=== PATIENT | female | born 1945 | race Caucasian/White ===

== ENCOUNTER 2019-10-13 08:22 | Day surgery (SDC) | payer MEDICARE, OTHER, SELFPAY ==
--- NOTE | 2019-10-13 | PATH_ITS ---
[facility] [place] Accession Number: [id number] . 01 Material submitted: . colon - SPLENIC FLEXURE POLYP . 02 Diagnosis: Splenic Flexure, Polyp, Biopsy: Tubular adenoma. MRV 10/14/2019 1310 Local . 02 Electronically signed: . Elizabeth Joya MD, Pathologist NPI- [id number] . 01 Gross description: . SPLENIC FLEXURE POLYP: Received in formalin are 2 fragment(s) of andino, soft tissue measuring 0.2 x 0.2 x 0.1 cm to 0.3 x 0.2 x 0.2 cm submitted entirely in 1 cassette(s) [place] [place]/13/2019 2226 Local . 02 Pathologist provided ICD-10: D12.3 . 02 CPT . 740822 Performed at: 01 [facility] [address] [id number] MD King Ahuja MD Phone: [phone] Performed at: 02 [facility] [place] [address] [place], [place] [id number] MD Elizabeth Joya MD Phone: [phone]
[2019-10-13 08:44] VITALS: BP 152/82; PULSE 83; RESP 16; TEMP 36.2; O2SAT 97
[2019-10-13 08:45] VITALS: BMI 25.0
[2019-10-13] MEDS: SODIUM CHLORIDE 0.9% 1,000 ML 42 ML IV (08:56)
--- NOTE | 2019-10-13 09:14 | PM.HP.1 ---
History of Present Illness History of Present Illness Chief complaint: [id number] Patient History Medical History (Updated 10/13/19 @ 09:59 by Jeanne Harp MD) Adenomatous colon polyp (Acute) Surgical History (Updated 03/24/18 @ 06:17 by Conversion Provider) History of tonsillectomy Status post delivery Family & Social History Family History (Updated 11/30/17 @ 00:00 by Conversion Provider) Grandmother Stroke Mother Age: 84 Heart disease Grandfather Stroke Grandmother Heart disease Social History: household members spouse Meds Home Medications and Allergies Home Medications Medication Instructions Recorded Confirmed Type [cholestoff] #0 12/01/17 History [collagen] #0 12/01/17 History [flaxseed oil] #0 12/01/17 History [glucosamine karyn] #0 12/01/17 History ascorbic acid (vitamin C) #0 12/01/17 History calcium carbonate [Calci-Chew] #0 12/01/17 History cholecalciferol (vitamin D3) 1,000 iu #0 12/01/17 History coenzyme Q10 [Co Q-10] 300 mg #0 12/01/17 History lutein #0 12/01/17 History multivitamin [Multiple Vitamins] #0 12/01/17 History omega 2-ulq-aao-fish oil [Fish Oil] #0 12/01/17 History Allergies Allergy/AdvReac Type Severity Reaction Status Date / Time No Known Allergies Allergy Uncoded 10/13/19 08:56 Exam Vital Signs (past 8 hours): - 10/13/19 08:44 Temperature 97.2 F L Pulse Rate 83 Respiratory Rate 16 Blood Pressure 152/82 H Pulse Oximetry 97 Oxygen Delivery Method Room Air Narrative Exam Narrative: Oropharynx free of lesions Chest clear to auscultation percussion Cardiac exam reveals no S3 or murmur Assessment & Plan Assessment & Plan narrative: History of adenomatous colon polyps with large flat polyps present. Need for follow-up colonoscopy Patient is high risk for having follow-up colonoscopy therefore repeat colonoscopy with performed. Risks, benefits, alternatives have been explained.
--- NOTE | 2019-10-13 10:00 | PM.OP.ENDO ---
Operative Date/Time/Diagnoses Date of procedure: 10/13/19 Time of procedure: 10:00 Pre-op diagnosis: All see indication and findings Procedure & Clinicians Study performed: Colonoscopy, 1st screening Same procedure as scheduled: Yes Indications: Screening for colon cancer Surgeon: Jeanne Harp Procedure Notes Procedure in detail: After informed consent was obtained the patient was placed in the left lateral decubitus position. The video colonoscope was introduced the rectum slowly advanced to cecum. On slow withdrawal mucosa was carefully examined. The scope was removed. The patient tolerated procedure well. Blood loss none Complications none Sedation Total sedation time, 13 minutes Versed 5 mg fentanyl 150 micro g IV titration Findings 1. Tattoo deep in cecum and the in proximal transverse colon neither 1 with residual polyp 2. 5 mm polyp in splenic flexure Jumbo biopsy removed completely 3. Diverticulosis in a very adhesed to the segment of the sigmoid colon, eventually passed 4. Otherwise negative colonoscopy to cecum We will be in touch with the patient regarding findings. I think she be stretched to a 5 year interval. I would suggest colonoscopically follow-up and not follow-up with stool testing given his she is very high risk for large polyps and has had recurrent adenomatous polyps.
[2019-10-13] MEDS: fentaNYL 100 MCG/2 ML INJ 150 MCG IV (10:17)
[2019-10-13] MEDS: MIDAZOLAM 5 MG/5 ML VIAL IV (10:17)
[2019-10-13 10:25] VITALS: BP 113/61; PULSE 69; RESP 12; TEMP 36.8; O2SAT 96
[2019-10-13 10:30] VITALS: BP 116/61; PULSE 69; RESP 12; O2SAT 96
[2019-10-13 10:35] VITALS: BP 112/57; PULSE 67; RESP 10; O2SAT 94
[2019-10-13 10:59] VITALS: BP 118/69; PULSE 55; RESP 16; TEMP 37.3; O2SAT 96
== END 2019-10-13 11:07 | disposition home or self-care (01) ==
PROVIDERS: Family Provider Internal Medicine; PCP Internal Medicine; Visit Provider Internal Medicine Gastroenterology
PROC: 0DJD8ZZ Inspection of Lower Intestinal Tract, Via Natural or Artificial Opening Endoscopic (ICD-10-PCS; CPT 45378; principal; 2019-10-13 09:30)
DX: Z12.11 Encounter for screening for malignant neoplasm of colon (principal); Z86.010 Personal history of colon polyps; F41.9 Anxiety disorder, unspecified; D12.3 Benign neoplasm of transverse colon
CPT/HCPCS: 45380; J2250; J3010

== ENCOUNTER → 2021-08-09 14:28 | Outpatient (CLI) | payer MEDICARE, OTHER, SELFPAY ==
--- NOTE | 2021-08-09 14:32 | DI.MRI.S_ITS ---
PROCEDURE: MR LUMBAR SPINE WO CON INDICATIONS: Scoliosis with neural foraminal stenosis TECHNIQUE: Noncontrast sagittal T1 spin echo and T2 fast echo, sagittal STIR, axial T1 and T2 fast spin echo through the lumbar spine. In cases with scoliosis, additional coronal T2 fast spin echo may be performed. COMPARISON: [facility], RG, XR L-SPINE 2-3V, 05/09/2021, 10:07. FINDINGS: Image quality: This examination is limited by involuntary motion artifact. Alignment and Curvature: There is mqys-yg-qtltlizi dextroconvex lumbar scoliosis. There is minimal retrolisthesis seen at L1-L2 and L2-L3. Bone Marrow: Marrow is of normal overall signal. No acute vertebral body compression fractures. Spinal Cord: Conus medullaris terminates at the L1 level. Visualized cord demonstrates normal signal and size. Paraspinous Soft Tissues: No paravertebral masses. T11-T12: Mild loss of disc height and disc signal can be seen. Bridging endplate osteophytes are seen. No significant neural foraminal or central canal narrowing can be seen. T12-L1: The disc height and disk signal are well-preserved. Mild generalized disc bulge is seen. Mild facet joint hypertrophy is seen. No significant neural foraminal narrowing can be seen. Mild central canal narrowing is seen. L1-L2: At least moderate loss of disc height and disc signal can be seen. Mild to moderate disc bulge is seen, with a central disc extrusion. There is an associated annular fissure seen, as on series 2, image 9. Moderate facet joint hypertrophy is seen. There is zbee-ku-yxbdrfcp right-sided and moderate left-sided neural foraminal narrowing seen. At least moderate central canal narrowing is seen. L2-L3: At least moderate loss of disc height and disc signal can be seen. Moderate generalized disc bulge is seen. There is a central disc protrusion seen. There is a focal annular fissure seen posteriorly. There is swgq-cl-qmfirynk right-sided and at least moderate left-sided facet hypertrophy seen. There is mild right-sided and moderate to severe left-sided neural foraminal narrowing seen. There is a degree of compression seen upon the exiting left L2 nerve root. Moderate central canal narrowing is seen. L3-L4: At least moderate loss of disc height and disc signal can be seen. At least moderate disc bulge is seen, which is eccentric to the left. There is a mild central disc extrusion seen. Prominent facet hypertrophy is seen, left worse than right. There is moderate to severe left-sided neural foraminal narrowing, with associated mild compression upon the exiting left L3 nerve root. Moderate right-sided neural foraminal narrowing is seen. Moderate to severe central canal narrowing is seen at this level, as on series 6, image 22. L4-L5: Dvhg-pu-gfjisrgx loss of disc height and disc signal can be seen. Mild to moderate disc bulge is seen, which is eccentric to the left. There is a left foraminal disc extrusion seen, with superior migration of the disc material, as on series 4, image 12 and on series 2, image 12. Prominent facet hypertrophy is seen at this level. There is moderate to severe left-sided neural foraminal narrowing, with associated compression upon the exiting left L4 nerve root. Moderate right-sided neural foraminal narrowing is seen. Moderate central canal narrowing is seen. L5-S1: Moderate loss of disc height is seen. Loss of disc signal is seen. Reactive marrow endplate changes are seen, which are hyperintense on T1-weighted and T2-weighted imaging and most consistent with fatty metaplasia (Modic type II changes). At least moderate disc bulge is seen, which is eccentric to the right. Mild to moderate facet hypertrophy is seen. There is at least moderate bilateral neural foraminal narrowing seen. Mild to moderate central canal narrowing is seen. IMPRESSION: Multiple levels of prominent lumbar spine degenerative change are seen. At the L3-L4 level, there is moderate to severe central canal narrowing seen. At least moderate central canal narrowing is seen at L1-L2. Moderate central canal narrowing can be seen at L2-L3 and at L4-L5. Several sites of significant neural foraminal narrowing can be seen, with associated exiting nerve root compression. Dextroconvex scoliosis. Dictated by: Bhavin Benson M.D. on 08/09/2021 at 14:19 Approved by: Bhavin Benson M.D. on 08/09/2021 at 14:24
== END ==
PROVIDERS: Family Provider Internal Medicine; PCP Family Medicine; Referring Provider Physical Medicine & Rehabilitation; Visit Provider Physical Medicine & Rehabilitation
DX: M48.061 Spinal stenosis, lumbar region without neurogenic claudication (principal); M51.36 Other intervertebral disc degeneration, lumbar region; M41.9 Scoliosis, unspecified
CPT/HCPCS: 72148

== ENCOUNTER → 2022-05-20 13:48 | Outpatient (CLI) | payer MEDICARE, OTHER, SELFPAY ==
--- NOTE | 2022-05-20 13:50 | DI.RAD.S_ITS ---
PROCEDURE: XR ANKLE RT MIN 3V INDICATIONS: right ankle swelling TECHNIQUE: 3 views of the ankle were acquired. COMPARISON: None. FINDINGS: Bones: No fractures or dislocations. Ankle mortise is normally aligned. No suspicious bony lesions. Soft tissues: No tibiotalar joint effusion. Achilles tendon appears normal. Mild soft tissue swelling of the right ankle. IMPRESSION: Right ankle soft tissue swelling. No underlying fracture or dislocation. If there are persistent symptoms or clinical suspicion for pathology, then repeat radiographs or advanced imaging (CT or MRI) may be considered for further evaluation. Dictated by: Delvis Mohr M.D. on 05/20/2022 at 16:29 Approved by: Delvis Mohr M.D. on 05/20/2022 at 16:31
== END ==
PROVIDERS: Family Provider Internal Medicine; PCP Family Medicine; Referring Provider Physical Medicine & Rehabilitation; Visit Provider Physical Medicine & Rehabilitation
DX: M25.471 Effusion, right ankle (principal); M79.89 Other specified soft tissue disorders; M41.26 Other idiopathic scoliosis, lumbar region; M54.59 Other low back pain
CPT/HCPCS: 73610; 99213

== ENCOUNTER 2023-09-25 14:55 | Observation (INO) | payer MEDICARE, OTHER, SELFPAY ==
[2023-09-25] VITALS (26 sets, daily range): BP systolic 154–219; BP diastolic 75–99; PULSE 67–88; RESP 16–32; TEMP 36.3–36.6; O2SAT 96–100; BMI 24.0
--- NOTE | 2023-09-25 15:10 | DI.RAD.S_ITS ---
PROCEDURE: XR CHEST 1V INDICATIONS: chest pain TECHNIQUE: One view of the chest was acquired. COMPARISON: None. FINDINGS: Surgical changes and devices: None. Lungs and pleura: Lungs are clear. No pleural effusions or pneumothorax. Mediastinum: Mediastinal contours appear normal. Heart size is mildly enlarged. Bones and chest wall: No suspicious bony lesions. Overlying soft tissues appear unremarkable. IMPRESSION: Portable chest within normal limits for age. Dictated by: Teressa Victoria M.D. on 09/25/2023 at 16:00 Approved by: Teressa Victoria M.D. on 09/25/2023 at 16:00
[2023-09-25 15:25] LABS: Add Manual Diff / Slide Review NO; Basophils Absolute Auto 0 /uL (0-100); Basophils Percent Auto 0.6 % (0-2); Eosinophils Absolute Auto 200 /uL (0-450); Eosinophils Percent Auto 2.1 % (2-4); Hematocrit 42.5 % (36-46); Lymphocytes Absolute Auto 1300 /uL (1100-4500); Lymphocytes Percent Auto 16.3 % (25-40); Mean Corpuscular HGB Conc 35.2 % (30-36); Mean Corpuscular Hemoglobin 32.4 PG (26-34); Mean Corpuscular Volume 92.1 fL (80-100); Monocytes Absolute Auto 600 /uL (0-900); Monocytes Percent Auto 6.9 % (3-14); Neutrophils Absolute Auto 6000 /uL (1500-7000); Neutrophils Percent Auto 74.1 % (50-75); Platelet Count 182 X10^3/uL (150-400); Red Blood Cell Count 4.61 X10^6/uL (4.0-5.2); Red Cell Distribution Width 12.3 % (11.6-14.8); White Blood Cell Count 8.1 X10^3/uL (4.5-11.0)
--- NOTE | 2023-09-25 15:25 | ED.CHESTPAIN ---
HPI - Chest Pain General Chief Complaint: Chest Pain Stated Complaint: sent by [facility] for abn EKG Time Seen by Provider: 09/25/23 15:11 Source: patient Mode of arrival: Ambulatory Limitations: no limitations History of Present Illness HPI narrative: Patient brought here by 2 of her friends from walk-in clinic for variable complaints but patient chiefly came to the clinic for feeling confused this morning. Friend state through the week she is been off on feeling foggy and confused. Patient states her usual task are very easy but today she found it very difficult to use the computer around noon time today, trying to send emails out. She was able to complete it. Patient and friends deny any slurred speech facial droop. Patient in no distress at this time. Patient recently started new blood pressure. Blood pressure noted here. Denies any headache. Fast exam is negative. No prior history of heart attack strokes or diabetes. Related Data Home Medications Medication Instructions Recorded Confirmed omega 8-ppr-vcy-fish oil 1,000 mg 1 cap PO DAILY ##0 12/01/17 09/25/23 (120 mg-180 mg) capsule (Fish Oil) naproxen sodium 220 mg capsule 220 mg PO BID PRN Pain (Scale 06/13/22 09/25/23 (Aleve) Score 1-3) Previous Rx's Medication Instructions Recorded celecoxib 200 mg capsule (Celebrex) 200 mg PO DAILY #30 caps 06/13/22 losartan 25 mg tablet 25 mg PO DAILY #30 tabs 09/26/23 Allergies Allergy/AdvReac Type Severity Reaction Status Date / Time No Known Drug Allergies Allergy Verified 09/25/23 17:46 Review of Systems Review of Systems Narrative: GENERAL: negative chills, fatigue, malaise, fever, sweats. HEENT: negative sinus pain, ear pain, sore throat RESPIRATORY: negative dyspnea, cough CARDIOVASCULAR: negative chest pain, palpitations GASTROINTESTINAL: negative nausea, vomiting, abdominal pain : negative dysuria, frequency, hematuria MUSCULOSKELETAL: negative muscle or bony pain SKIN: negative rash, skin lesions NEUROLOGIC: negative weakness, numbness, positive confusion ROS Unobtainable: All systems reviewed & are unremarkable except as noted in HPI and below Patient History Medical History Right ankle swelling Scoliosis Low back pain associated with a spinal disorder other than radiculopathy or spinal stenosis Adenomatous colon polyp Surgical History Status post delivery History of tonsillectomy Family History Grandmother Stroke Mother Age: 88 Heart disease Grandfather Stroke Grandmother Heart disease Social History household members: spouse Smoking Status: Never smoker alcohol intake: never Smoking Status: Never smoker Substance Use Type: does not use Exam Narrative Exam Narrative: GENERAL: in no distress, not toxic not dyspneic HEAD: Normocephalic. EYES: Pupils equal round ENT: Mucous membranes moist. NECK: Trachea midline. CARDIOVASCULAR: Regular rate and rhythm RESPIRATORY: Clear to auscultation. Breath sounds equal bilaterally. No wheezes, rales, or rhonchi. GASTROINTESTINAL: Abdomen soft, non-tender EXTREMITIES: No gross deformities. BACK: No flank tenderness. NEURO: AOx4.Clear speech no facial droop. ?Light touch intact to bilateral face hands and legs. ?Strong equal machine design engineer bilaterally and ankle flexion hip flexion and knee flexion. ?Strong bilateral patellar reflexes. ?No pronator drift. ? SKIN: Warm and dry PSYCH: Not anxious, is cooperative Initial Vital Signs Initial Vital Signs: Vital Signs Temperature 98 F 09/25/23 15:07 Pulse Rate 77 09/25/23 15:07 Respiratory Rate 16 09/25/23 15:07 Blood Pressure 219/99 H 09/25/23 15:07 Pulse Oximetry 100 09/25/23 15:07 Oxygen Delivery Method Room Air 09/25/23 15:07 Scores NIH Stroke Scale Level of Conciousness: Alert, keenly responsive Ask month/age: Answers both questions correctly. Open/close eyes, close hand: Performs both tasks correctly Best gaze horizontal: Normal Visual gutierrez: No visual loss Facial palsy: Normal symetrical movement Left arm drift: No drift for full 10 sec Right arm drift: No drift for full 10 sec Left leg drift: No drift for full 5 sec Right leg drift: No drift for full 5 sec Limb ataxia: Absent Sensory on face/arms/legs: Normal, no sensory loss Best language: No aphasia, normal Dysarthria: Normal Extinction or inattention: No abnormality Total NIH Stroke scale score: 0 Course Orders Ordered: Discontinued Medications Acetaminophen (Acetaminophen 325 Mg Tablet) 650 mg PO Q6H PRN PRN Reason: Fever/Mild Pain (1-3) Aspirin (Aspirin 81 Mg Chew Tab) 324 mg PO NOW ONE Stop: 09/25/23 15:11 Last Admin: 09/25/23 15:20 Dose: Not Given Documented By: MARZENA Enoxaparin Sodium (Enoxaparin 40 Mg/0.4 Ml Syringe) 40 mg SUBCUT DAILY [facility] Last Admin: 09/26/23 09:53 Dose: Not Given Documented By: Admin: 09/25/23 18:49 Dose: 40 mg Documented By: MARZENA Sodium Chloride (Normal Saline 0.9%) 500 mls @ 1,000 mls/hr IV BOLUS ONE Stop: 09/25/23 15:54 Last Infusion: 09/25/23 16:56 Dose: Infused Documented By: Admin: 09/25/23 15:47 Dose: 1,000 mls/hr Documented By: MARZENA Sodium Chloride (Normal Saline 0.9%) 1,000 mls @ 100 mls/hr IV CONT [facility] Stop: 09/26/23 05:29 Last Admin: 09/25/23 21:30 Dose: 100 mls/hr Documented By: JEWEL Magnesium Sulfate (Magnesium Sulfate) 2 gm in 50 mls @ 25 mls/hr IV NOW ONE Stop: 09/25/23 19:27 Last Admin: 09/25/23 19:05 Dose: 25 mls/hr Documented By: MARZENA Co-signed By: HENRY Labetalol HCl (Labetalol 20 Mg/4 Ml Syringe) 5 mg IV NOW ONE Stop: 09/25/23 15:55 Last Admin: 09/25/23 16:06 Dose: 5 mg Documented By: MARZENA Labetalol HCl (Labetalol 20 Mg/4 Ml Syringe) 10 mg IV Q5MIN PRN PRN Reason: SBP >180 or DBP >110 Losartan Potassium (Losartan 25 Mg Tablet) 25 mg PO BID [facility] Last Admin: 09/26/23 09:53 Dose: 25 mg Documented By: Admin: 09/25/23 21:29 Dose: 25 mg Documented By: Admin: 09/25/23 18:49 Dose: 25 mg Documented By: MARZENA Melatonin (Melatonin 3 Mg Tablet) 6 mg PO BEDTIME PRN PRN Reason: Insomnia Naloxone HCl (Naloxone 0.4 Mg/Ml Vial) 0.2 mg IV Q2MIN PRN PRN Reason: Opiate Reversal Ondansetron HCl (Ondansetron 4 Mg/2 Ml Inj) 4 mg IV Q8HR PRN PRN Reason: Nausea And Vomiting Polyethylene Glycol (Polyethylene Glycol 3350 17 Gm Powd.Pack) 17 gm PO DAILY PRN PRN Reason: Constipation Potassium Chloride (Potassium Chloride 20 Meq Tab) 40 meq PO NOW ONE Stop: 09/25/23 17:29 Last Admin: 09/25/23 18:48 Dose: 40 meq Documented By: MARZENA Sennosides (Sennosides 8.6 Mg Tablet) 8.6 mg PO BID PRN PRN Reason: Constipation Vital Signs Vital signs: Vital Signs - 8 hr 09/25/23 15:07 09/25/23 15:13 09/25/23 15:15 Temperature 98 F Pulse Rate 77 76 79 Respiratory Rate 16 18 Blood Pressure 219/99 H Pulse Oximetry 100 100 100 Oxygen Delivery Method Room Air 09/25/23 15:15 09/25/23 15:33 09/25/23 15:34 Temperature Pulse Rate 87 88 Respiratory Rate 20 19 Blood Pressure 215/85 H Pulse Oximetry 96 100 Oxygen Delivery Method 09/25/23 15:34 09/25/23 15:47 09/25/23 15:47 Temperature Pulse Rate 84 Respiratory Rate 24 Blood Pressure 174/81 H 199/91 H Pulse Oximetry 100 Oxygen Delivery Method 09/25/23 15:50 09/25/23 15:50 09/25/23 15:55 Temperature Pulse Rate 85 Respiratory Rate 24 Blood Pressure 203/94 H 193/78 H Pulse Oximetry 100 Oxygen Delivery Method 09/25/23 15:55 09/25/23 16:00 09/25/23 16:00 Temperature Pulse Rate 86 84 Respiratory Rate 24 24 Blood Pressure 198/90 H Pulse Oximetry 100 100 Oxygen Delivery Method 09/25/23 16:06 09/25/23 16:15 09/25/23 16:15 Temperature Pulse Rate 82 80 Respiratory Rate 22 Blood Pressure 198/90 H 190/81 H Pulse Oximetry 100 Oxygen Delivery Method MDM - Chest Pain Lab Data 09/26/23 05:03 09/26/23 05:03 Labs: Lab Results 09/25/23 Range/Units 15:05 WBC 8.1 (4.5-11.0) X10^3/uL RBC 4.61 (4.0-5.2) X10^6/uL Hgb 15.0 (12.0-16.0) g/dL Hct 42.5 (36-46) % MCV 92.1 (80-100) fL MCH 32.4 (26-34) PG MCHC 35.2 (30-36) % RDW 12.3 (11.6-14.8) % Plt Count 182 (150-400) X10^3/uL Neut % (Auto) 74.1 (50-75) % Lymph % (Auto) 16.3 L (25-40) % [place] % (Auto) 6.9 (3-14) % Eos % (Auto) 2.1 (2-4) % Baso % (Auto) 0.6 (0-2) % Neut # (Auto) 6000 (1616-2729) /uL Lymph # (Auto) 1300 (7765-6614) /uL [place] # (Auto) 600 (0-900) /uL Eos # (Auto) 200 (0-450) /uL Baso # (Auto) 0 (0-100) /uL PT 13.6 H (10.1-12.7) SECONDS INR 1.2 (0.9-1.3) APTT 30 (26-36) SECONDS Sodium 128 L (137-145) mmol/L Potassium 3.0 L (3.4-5.1) mmol/L Chloride 91 L (98-107) mmol/L Carbon Dioxide 27 (22-32) mmol/L BUN 15 (7-17) mg/dL Creatinine 0.75 (0.52-1.04) mg/dL Estimated GFR > 60 (>60) mL/min BUN/Creatinine Ratio 20.0 (6-22) Glucose 104 (80-110) mg/dL Hemoglobin A1c 5.3 (4.0-6.0) % Calcium 10.4 H (8.4-10.2) mg/dL Magnesium 1.8 (1.6-2.3) mg/dL Total Bilirubin 0.3 (0.2-1.3) mg/dL AST 44 H (14-36) IU/L ALT 47 H (<35) IU/L Alkaline Phosphatase 82 (38-126) U/L Total Creatine Kinase 38 (30-135) U/L Troponin I < 0.012 (0.01-0.034) ng/mL Total Protein 7.6 (6.3-8.2) g/dL Albumin 4.6 (3.5-5.0) g/dL Globulin 3.0 (1.7-4.1) g/dL Albumin/Globulin Ratio 1.5 (1.0-2.8) Triglycerides 132 (35-150) mg/dL Cholesterol 144 (140-199) mg/dL LDL Cholesterol, Calc 78 (<100) mg/dL HDL Cholesterol 40 (40-60) mg/dL Lipase 269 (23-300) U/L TSH 1.33 (0.47-4.68) uIU/mL Imaging Data Chest x-ray: Radiologist's Impression: [address] [address] XRay Report Signed Patient: Dominga Vega MR#: [id number] : 1945 Acct:[id number] Age/Sex: 78 / F Date of Service: 09/25/23 Loc: ED Accession Number: [id number] Procedure: XR chest 1V Ordering Provider: Todd Lopez MD PROCEDURE: XR CHEST 1V INDICATIONS: chest pain TECHNIQUE: One view of the chest was acquired. COMPARISON: None. FINDINGS: Surgical changes and devices: None. Lungs and pleura: Lungs are clear. No pleural effusions or pneumothorax. Mediastinum: Mediastinal contours appear normal. Heart size is mildly enlarged. Bones and chest wall: No suspicious bony lesions. Overlying soft tissues appear unremarkable. IMPRESSION: Portable chest within normal limits for age. Dictated by: Teressa Victoria M.D. on 09/25/2023 at 16:00 Approved by: Teressa Victoria M.D. on 09/25/2023 at 16:00 CT scan - head: Radiologist's Impression: [address] [address] [address] Scan Report Signed Patient: Dominga Vega MR#: [id number] : 1945 Acct:[id number] Age/Sex: 78 / F Date of Service: 09/25/23 Loc: ED Accession Number: [id number] Procedure: CT Stroke Ordering Provider: Todd Lopez MD PROCEDURE: CT STROKE INDICATIONS: Altered mental status TECHNIQUE: Noncontrast 4.5 mm thick angled axial sections acquired from the foramen magnum to the vertex, with coronal reformats. For radiation dose reduction, the following was used: automated exposure control, adjustment of mA and/or kV according to patient size. COMPARISON: None. FINDINGS: Image quality: Excellent. CSF spaces: Basal cisterns are patent. No extra-axial fluid collections. Ventricles are normal in size and shape. Brain: No midline shift. No intracranial masses or hemorrhage. Grimaldo-white matter interface is normal. Skull and face: Calvarium and visualized facial bones are intact, without suspicious lesions. Sinuses: Visualized sinuses and mastoids are clear. IMPRESSION: 1. No acute intracranial abnormality. 2. Cerebral volume loss and small vessel ischemic changes. This study fulfills neurological imaging criteria for inclusion or exclusion of acute stroke therapies based on available published neurological imaging guidelines. Dictated by: Terrence Stuart M.D. on 09/25/2023 at 15:43 Approved by: Terrence Stuart M.D. on 09/25/2023 at 15:48 CTA - brain/neck: Radiologist's Impression: [place] [address] CT Scan Report Signed Patient: Dominga Vega MR#: [id number] : 1945 Acct:[id number] Age/Sex: 78 / F Date of Service: 09/25/23 Loc: ED Accession Number: [id number] Procedure: CT angio head and neck Ordering Provider: Todd Lopez MD PROCEDURE: CT ANGIO HEAD AND NECK INDICATIONS: Altered mental status TECHNIQUE: After the administration of intravenous contrast, 1 mm thick sections acquired from the aortic arch through the [place] of [place]. 3-dimensional fuumhro-uimplqntz-ohvoikkwhb (MIP) and/or volume rendering reformats were acquired of the central intracranial vasculature and neck separately. For radiation dose reduction, the following was used: automated exposure control, adjustment of mA and/or kV according to patient size. COMPARISON: [facility], CT, CT STROKE, 09/25/2023, 15:27. FINDINGS: Image quality: Limited by bolus timing, with venous contamination. BRAIN: CSF spaces: Ventricles are normal in size and shape. Basal cisterns are patent. No extra-axial fluid collections. Brain: No significant abnormality of the brain can be seen. Skull and face: Calvarium and facial bones appear intact, without suspicious lesions. Orbits appear normal. Sinuses: Sinuses and mastoids are clear. HEAD CT ANGIOGRAPHY: Anterior circulation: Intracranial internal carotid arteries are normal in size and flow. The flow within the paired anterior cerebral arteries is normal and symmetric. The flow within the middle cerebral arteries is normal and symmetric. The anterior communicating artery is seen. No aneurysms are seen. Posterior circulation: Visualized portions of the vertebral arteries demonstrate normal caliber, and join to form a normal appearing basilar artery. There is a prominent left posterior communicating artery seen, with an accompanying diminutive left P1 segment. This is attributed to a type origin of the right posterior cerebral artery, which is considered to be a normal developmental variant of typically no clinical consequence. The flow within the posterior cerebral arteries is normal and symmetric. No aneurysms are seen. NECK CT ANGIOGRAPHY: Carotid system: The great vessels demonstrate a conventional anatomy as they arise from the aortic arch. The origins of the common carotid arteries appear patent. The common carotid arteries demonstrate normal caliber and courses. The bifurcation regions demonstrate atherosclerotic irregularity, and calcification, left worse than right, yet without a hemodynamically significant stenosis this The internal carotid arteries demonstrate normal calibers and courses. Posterior circulation: The origins of the vertebral arteries both appear widely patent. The more superior extracranial portions of both vertebral arteries also demonstrate normal courses and calibers. They join to form a normal appearing basilar artery. Soft tissues: Visualized neck soft tissues demonstrate no suspicious abnormalities. Bones: No suspicious bony lesions. Visualized cervical spine appears normally aligned. Moderate cervical spine degenerative changes are seen. IMPRESSION: No significant intracranial arterial abnormality is seen. Within the arteries of the neck, no hemodynamically significant stenosis can be seen. Any quantitative measurements of stenosis were performed using NASCET criteria. Dictated by: Bhavin Benson M.D. on 09/25/2023 at 15:21 Approved by: Bhavin Benson M.D. on 09/25/2023 at 15:23 MDM Narrative Medical decision making narrative: Patient brought here by 2 of her friends from walk-in clinic for variable complaints but patient chiefly came to the clinic for feeling confused this morning. Friend state through the week she is been off on feeling foggy and confused. Patient states her usual task are very easy but today she found it very difficult to use the computer around noon time today, trying to send emails out. She was able to complete it. Patient and friends deny any slurred speech facial droop. Patient in no distress at this time. Patient recently started new blood pressure. Blood pressure noted here. Denies any headache. Fast exam is negative. No prior history of heart attack strokes or diabetes. After history and exam code stroke activated. CBC CMP EKG CT head CT angiogram head neck [facility] CC: Altered mental status/confusion Complicating co-morbidities: Hypertension Data collected from: Patient and friends Medical records reviewed: No recent visit for this complaint Differential considered: Includes but not limited to TIA stroke hypertensive urgency hypertensive emergency Exam documented above, pertinent findings include: Fast exam is negative Lab Test results independently reviewed as above. Pertinent findings: WBC 8.1 hemoglobin 15 INR 1.2 Sodium 128 potassium 3.0 Troponin less than 0.012 Independently reviewed EKG sinus rhythm rate [address] elevation or depression Imaging studies independently reviewed: CT head no acute finding Chest x-ray no acute finding CT angiogram head neck no acute finding Consultations: 3:47 p.m.. Spoke with radiologist, head CT without contrast no acute finding 3:50 p.m.. Spoke with [facility] stroke, dr garcia, admit for MRI/echo, give labetalol, need to correct electrolytes, change bp med to amlodipine, no antiplatelets needed at this time. She is reviewed CT scan without contrast as well as angiogram, no acute finding but definitely needs observation 4:[address] De Los Santos, hospitalist, who will admit patient. At this time blood pressure goals would not be the same for TIA/stroke. As neurology does not think this is stroke or TIA. Treatments: Normal saline Re-evaluations: Updated patient and her friends at bedside. Patient at baseline at this time. Blood pressure has improved. They do understand necessity for admission and blood pressure medication changes. And recheck electrolytes and needs MRI Discussion: Appropriate for observation for continued workup and balance of evaluation for hypertensive urgency and altered mental status. Blood pressure has improved. Diagnosis: Altered mental status hypertensive urgency Discharge Plan Departure Patient Disposition: Admitted as Observation Clinical Impression: Hypertensive urgency Altered mental status Qualifiers: Altered mental status type: unspecified Qualified Code(s): R41.82 - Altered mental status, unspecified Admit Date/Time: 09/25/23 16:58 Admit Provider: Sahil De Los Santos
[2023-09-25 15:34] LABS: INR 1.2 (0.9-1.3); Prothrombin Time 13.6 SECONDS (10.1-12.7)
[2023-09-25 15:37] LABS: PTT Partial Thromboplastin Tim 30 SECONDS (26-36)
[2023-09-25 15:39] LABS: Alanine Aminotransferase 47 IU/L (<35); Albumin 4.6 g/dL (3.5-5.0); Albumin Globulin Ratio 1.5 (1.0-2.8); Alkaline Phosphatase 82 U/L (38-126); Aspartate Aminotransferase 44 IU/L (14-36); Bilirubin Total 0.3 mg/dL (0.2-1.3); Blood Urea Nitrogen 15 mg/dL (7-17); Calcium 10.4 mg/dL (8.4-10.2); Carbon Dioxide 27 mmol/L (22-32); Chloride 91 mmol/L (98-107); Creatine Kinase 38 U/L (30-135); Estimated Glomerular Filt Rate > 60 mL/min (>60); Glucose 104 mg/dL (80-110); HEMOLYSIS 16 (0-50); Lipase 269 U/L (23-300); Magnesium 1.8 mg/dL (1.6-2.3); Sodium 128 mmol/L (137-145); Total Protein 7.6 g/dL (6.3-8.2)
[2023-09-25] MEDS: SODIUM CHLORIDE 0.9% 500 ML 1000 ML IV (15:47)
[2023-09-25 15:50] LABS: Troponin I < 0.012 ng/mL (0.01-0.034)
[2023-09-25] MEDS: LABETALOL 20 MG/4 ML SYRINGE 5 MG IV (16:06)
--- NOTE | 2023-09-25 16:15 | PC.NURSE ---
1525: RNs and provider at bedside. 20G established to R AC. Pt reports episode of confusion and inability to concentrate at approximately 1200 today; unwitnessed, episode resolved spontaneously, pt drove self to [facility] in [place], referred to ED for hypertension and abnormal EKG. Pt alert, oriented, answering questions appropriately, no obvious deficits, NIH 0. Airway patent, RR even, unlabored, skin WNL. Provider made decision to call stroke alert; pt escorted to CT via stretcher with RN. 1535: returned from CT without issue. BG 94.
--- NOTE | 2023-09-25 17:30 | DI.MRI.S_ITS ---
PROCEDURE: MR HEAD/BRAIN WO CON INDICATIONS: TIA, stroke? TECHNIQUE: Non-contrast axial T1 spin echo, axial T2 fast spin echo, sagittal and axial FLAIR, coronal T2 fast spin echo, axial gradient echo, axial diffusion and ADC through the brain. COMPARISON: [facility], CT, CT STROKE, 09/25/2023, 15:27. FINDINGS: Image quality: Excellent. CSF spaces: Ventricles appear symmetric in size and shape. Basal cisterns are patent. No extra-axial fluid collections. Brain: No intracranial bleeds or mass effects. There is cerebral volume loss for age. There are mild periventricular and deep white matter chronic small vessel ischemic changes. Brainstem appears normal. Diffusion-weighted images show no acute ischemic insults. No chronic ischemic insults. Normal intravascular flow voids are present. Skull and face: Calvarial bone marrow is normal in signal. Orbits are normal. Sinuses: Sinuses and mastoids are clear. IMPRESSION: 1. No acute intracranial abnormalities. Dictated by: Pj Roger M.D. on 09/25/2023 at 22:08 Approved by: Pj Roger M.D. on 09/25/2023 at 22:09
[2023-09-25 18:13] LABS: Hemoglobin A1C% w Est Avg Glu 5.3 % (4.0-6.0)
--- NOTE | 2023-09-25 18:27 | PM.HP.1 ---
History of Present Illness History of Present Illness Date Patient Seen: 09/25/23 Chief complaint: sent by [facility] for abn EKG Narrative: Dominga Vega is a 78yo F with PMH of low back pain who presents with change in mentation with concern for TIA vs stroke. Patient was working at the computer and had trouble with her tasks that she normally can do just fine. She recently started chlorthalidone for high blood pressure started by her PCP. In the ED patient found to have an NIH of 0. Blood pressure was very high up to 219 systolic. Sodium found to be 128. Tele stroke was less concerned for stroke and recommended switching blood pressure medications and giving IVF to raise sodium. Patient states her blood pressure is usually in the 110's at home. She denies having excess stress. She has been avoiding salt to help lower her BP. She denies headache, visual changes, weakness, facial droop, ataxia or CP. [facility] Medical History Right ankle swelling Scoliosis Low back pain associated with a spinal disorder other than radiculopathy or spinal stenosis Adenomatous colon polyp Surgical History Status post delivery History of tonsillectomy Family History Grandmother Stroke Mother Age: 88 Heart disease Grandfather Stroke Grandmother Heart disease Social History household members: spouse Smoking Status: Never smoker alcohol intake: never Meds Home Medications and Allergies Home Medications Medication Instructions Recorded Confirmed Type omega 8-yvl-sky-fish oil 1,000 mg 1 cap PO DAILY ##0 12/01/17 09/25/23 History (120 mg-180 mg) capsule (Fish Oil) celecoxib 200 mg capsule (Celebrex) 200 mg PO DAILY #30 caps 06/13/22 09/25/23 Rx naproxen sodium 220 mg capsule 220 mg PO BID PRN Pain (Scale 06/13/22 09/25/23 History (Aleve) Score 1-3) losartan 25 mg tablet 25 mg PO DAILY #30 tabs 09/26/23 Rx Allergies Allergy/AdvReac Type Severity Reaction Status Date / Time No Known Drug Allergies Allergy Verified 09/25/23 17:46 Review of Systems Review of Systems Narrative: All other systems reviewed with the patient and are negative unless otherwise stated. Exam Vital Signs (past 8 hours): - 09/25/23 15:07 09/25/23 15:13 09/25/23 15:15 Temperature 98 F Pulse Rate 77 76 79 Respiratory Rate 16 18 Blood Pressure 219/99 H Pulse Oximetry 100 100 100 Oxygen Delivery Method Room Air 09/25/23 15:15 09/25/23 15:33 09/25/23 15:34 Temperature Pulse Rate 87 88 Respiratory Rate 20 19 Blood Pressure 215/85 H Pulse Oximetry 96 100 Oxygen Delivery Method 09/25/23 15:34 09/25/23 15:47 09/25/23 15:47 Temperature Pulse Rate 84 Respiratory Rate 24 Blood Pressure 174/81 H 199/91 H Pulse Oximetry 100 Oxygen Delivery Method 09/25/23 15:50 09/25/23 15:50 09/25/23 15:55 Temperature Pulse Rate 85 Respiratory Rate 24 Blood Pressure 203/94 H 193/78 H Pulse Oximetry 100 Oxygen Delivery Method 09/25/23 15:55 09/25/23 16:00 09/25/23 16:00 Temperature Pulse Rate 86 84 Respiratory Rate 24 24 Blood Pressure 198/90 H Pulse Oximetry 100 100 Oxygen Delivery Method 09/25/23 16:06 09/25/23 16:15 09/25/23 16:15 Temperature Pulse Rate 82 80 Respiratory Rate 22 Blood Pressure 198/90 H 190/81 H Pulse Oximetry 100 Oxygen Delivery Method 09/25/23 16:30 09/25/23 16:30 09/25/23 16:45 Temperature Pulse Rate 70 Respiratory Rate 18 Blood Pressure 182/80 H 177/86 H Pulse Oximetry 100 Oxygen Delivery Method 09/25/23 16:45 09/25/23 17:00 09/25/23 17:00 Temperature Pulse Rate 69 69 Respiratory Rate 24 23 Blood Pressure 178/80 H Pulse Oximetry 98 Oxygen Delivery Method 09/25/23 17:07 09/25/23 17:16 09/25/23 17:16 Temperature Pulse Rate 69 67 Respiratory Rate 25 H Blood Pressure 178/80 H 162/75 H Pulse Oximetry 100 Oxygen Delivery Method 09/25/23 17:30 09/25/23 17:30 09/25/23 17:45 Temperature Pulse Rate 70 71 Respiratory Rate 32 H 20 Blood Pressure 184/82 H Pulse Oximetry 100 99 Oxygen Delivery Method 09/25/23 17:45 09/25/23 18:00 09/25/23 18:00 Temperature Pulse Rate 77 Respiratory Rate 20 Blood Pressure 170/85 H 170/80 H Pulse Oximetry 97 Oxygen Delivery Method Oxygen Delivery Method Room Air Narrative Exam Narrative: GEN: no acute distress HEENT: moist mucous membranes, PERRL NECK: trachea midline, no JVD CV: regular rate and rhythm, no murmurs PULM: clear bilaterally ABD: soft, nontender, nondistended, no organomegaly EXT: warm and well perfused with no edema NEURO: awake, alert, oriented, no focal deficits Objective Labs 09/26/23 05:03 09/26/23 05:03 Labs: Laboratory Results - last 24 hr 09/25/23 15:05 WBC 8.1 RBC 4.61 Hgb 15.0 Hct 42.5 MCV 92.1 MCH 32.4 MCHC 35.2 RDW 12.3 Plt Count 182 Neut % (Auto) 74.1 Lymph % (Auto) 16.3 L [place] % (Auto) 6.9 Eos % (Auto) 2.1 Baso % (Auto) 0.6 Neut # (Auto) 6000 Lymph # (Auto) 1300 [place] # (Auto) 600 Eos # (Auto) 200 Baso # (Auto) 0 PT 13.6 H INR 1.2 APTT 30 Sodium 128 L Potassium 3.0 L Chloride 91 L Carbon Dioxide 27 BUN 15 Creatinine 0.75 Estimated GFR > 60 BUN/Creatinine Ratio 20.0 Glucose 104 Hemoglobin A1c 5.3 Calcium 10.4 H Magnesium 1.8 Total Bilirubin 0.3 AST 44 H ALT 47 H Alkaline Phosphatase 82 Total Creatine Kinase 38 Troponin I < 0.012 Total Protein 7.6 Albumin 4.6 Globulin 3.0 Albumin/Globulin Ratio 1.5 Lipase 269 Assessment & Plan Assessment & Plan narrative: # concern for TIA versus stroke -patient had change in mental status with some confusion, likely due to sodium but will rule out stroke -CT head and CTA head neck negative -MRI brain ordered -tele # hypertensive urgency -BP up to 219 systolic -start losartan 25 mg b.i.d., stop chlorthalidone -labetalol IV as needed # acute hyponatremia -recently started chlorthalidone for blood pressure and sodium now 128 -IVF -stop chlorthalidone and start losartan 25 mg b.i.d. -monitor sodium # hypokalemia -replete as needed # mildly elevated LFTs -trend Code status is full code. DVT prophylaxis with Lovenox. Proxy is spouse Blair. I have reviewed home meds and used all available resources to reconcile the home meds. Case discussed with ED physician/APC and patient will be admitted to the hospitalist service for further workup and management. This patient will be admitted as observation and will require less than 2 midnights of hospital time to treat TIA.
[2023-09-25 18:33] LABS: Cholesterol 144 mg/dL (140-199); HDL Cholesterol 40 mg/dL (40-60); LDL Cholesterol Calculated 78 mg/dL (<100); Triglycerides 132 mg/dL (35-150)
[2023-09-25 18:44] LABS: TSH w/ Reflex to FT4 1.33 uIU/mL (0.47-4.68)
[2023-09-25] MEDS: POTASSIUM CHLORIDE 20 MEQ TAB 40 MEQ PO (18:48)
[2023-09-25] MEDS: ENOXAPARIN 40 MG/0.4 ML SYRINGE SUBCUT (18:49)
[2023-09-25] MEDS: LOSARTAN 25 MG TABLET PO ×2 (18:49→21:29)
[2023-09-25] MEDS: MAGNESIUM SULFATE 2 GM/50 ML PIGGYBACK IV (19:05)
[2023-09-25] MEDS: SODIUM CHLORIDE 0.9% 1,000 ML 100 ML IV (21:30)
[2023-09-26 01:00] VITALS: BP 138/69; PULSE 65; RESP 16; TEMP 36.6; O2SAT 100
[2023-09-26 05:00] VITALS: BP 110/65; PULSE 63; RESP 17; TEMP 36.2; O2SAT 96
[2023-09-26 05:13] LABS: Add Manual Diff / Slide Review NO; Basophils Absolute Auto 0 /uL (0-100); Basophils Percent Auto 0.9 % (0-2); Eosinophils Absolute Auto 300 /uL (0-450); Eosinophils Percent Auto 4.9 % (2-4); Hematocrit 39.8 % (36-46); Lymphocytes Absolute Auto 1400 /uL (1100-4500); Lymphocytes Percent Auto 23.9 % (25-40); Mean Corpuscular HGB Conc 35.2 % (30-36); Mean Corpuscular Hemoglobin 32.4 PG (26-34); Mean Corpuscular Volume 92.2 fL (80-100); Monocytes Absolute Auto 500 /uL (0-900); Monocytes Percent Auto 9.1 % (3-14); Neutrophils Absolute Auto 3500 /uL (1500-7000); Neutrophils Percent Auto 61.2 % (50-75); Platelet Count 164 X10^3/uL (150-400); Red Blood Cell Count 4.32 X10^6/uL (4.0-5.2); Red Cell Distribution Width 12.3 % (11.6-14.8); White Blood Cell Count 5.7 X10^3/uL (4.5-11.0)
[2023-09-26 05:27] LABS: Alanine Aminotransferase 37 IU/L (<35); Albumin 3.8 g/dL (3.5-5.0); Albumin Globulin Ratio 1.5 (1.0-2.8); Alkaline Phosphatase 66 U/L (38-126); Aspartate Aminotransferase 34 IU/L (14-36); BUN Creatinine Ratio 19.1 (6-22); Bilirubin Total 0.3 mg/dL (0.2-1.3); Blood Urea Nitrogen 13 mg/dL (7-17); Calcium 9.3 mg/dL (8.4-10.2); Carbon Dioxide 28 mmol/L (22-32); Chloride 100 mmol/L (98-107); Estimated Glomerular Filt Rate > 60 mL/min (>60); Globulin 2.5 g/dL (1.7-4.1); Glucose 94 mg/dL (80-110); HEMOLYSIS < 15 (0-50); Potassium 3.8 mmol/L (3.4-5.1); Sodium 133 mmol/L (137-145); Total Protein 6.3 g/dL (6.3-8.2)
[2023-09-26 05:39] LABS: Troponin I 0.023 ng/mL (0.01-0.034)
[2023-09-26 08:00] VITALS: BP 151/60; PULSE 66; RESP 18; TEMP 36.1; O2SAT 100
--- NOTE | 2023-09-26 08:36 | P.DS_ITS ---
History of Present Illness History of Present Illness Date Patient Seen: 09/25/23 Chief complaint: sent by [facility] for abn EKG Narrative: Dominga Vega is a 78yo F with PMH of low back pain who presents with change in mentation with concern for TIA vs stroke. Patient was working at the computer and had trouble with her tasks that she normally can do just fine. She recently started chlorthalidone for high blood pressure started by her PCP. In the ED patient found to have an NIH of 0. Blood pressure was very high up to 219 systolic. Sodium found to be 128. Tele stroke was less concerned for stroke and recommended switching blood pressure medications and giving IVF to raise sodium. Patient states her blood pressure is usually in the 110's at home. She denies having excess stress. She has been avoiding salt to help lower her BP. She denies headache, visual changes, weakness, facial droop, ataxia or CP. Discharge Providers Provider Date of admission: 09/25/23 16:58 Discharge Date: 09/26/23 Primary care physician: Todd Callahan DO Discharge provider: Sahil De Los Santos DO Summary Hospital Course Discharge Diagnosis: # TIA versus stroke ruled out -patient had change in mental status with some confusion, likely due to sodium but will rule out stroke -CT head and CTA head neck negative -MRI brain ordered and negative -no need for antiplatelets per telestroke # hypertensive urgency -BP up to 219 systolic -start losartan 25 mg b.i.d., stop chlorthalidone -labetalol IV as needed -BP now 110 systolic # acute hyponatremia -recently started chlorthalidone for blood pressure and sodium now 128 -IVF -stop chlorthalidone and start losartan 25 mg b.i.d. -sodium now 133 after IVF # hypokalemia, resolved -replete as needed -now normal following supplement # mildly elevated LFTs -trend -nearly normalized now Hospital Course: Admitted for some confusion and concern for high BP up to 219 systolic and possible stroke. MRI negative. Na 128 after recently starting chlorthalidone so this was thought to be causing her neurologic symptoms. Improved to 133 with IVF. Chlorthalidone stopped and changed to losartan. BP improved to 110's. Discharged home to f/up with PCP. Exam Vital Signs (past 8 hours): - 09/26/23 01:00 09/26/23 05:00 Temperature 97.8 F 97.1 F L Pulse Rate 65 63 Respiratory Rate 16 17 Blood Pressure 138/69 110/65 Pulse Oximetry 100 96 Oxygen Flow Rate 0 0 Oxygen Delivery Method Room Air Oxygen Flow Rate 0 Narrative Exam Narrative: GEN: no acute distress HEENT: moist mucous membranes, PERRL NECK: trachea midline, no JVD CV: regular rate and rhythm, no murmurs PULM: clear bilaterally ABD: soft, nontender, nondistended, no organomegaly EXT: warm and well perfused with no edema NEURO: awake, alert, oriented, no focal deficits Objective Labs 09/26/23 05:03 09/26/23 05:03 Labs: Laboratory Results - last 24 hr 09/25/23 09/26/23 15:05 05:03 WBC 8.1 5.7 RBC 4.61 4.32 Hgb 15.0 14.0 Hct 42.5 39.8 MCV 92.1 92.2 MCH 32.4 32.4 MCHC 35.2 35.2 RDW 12.3 12.3 Plt Count 182 164 Neut % (Auto) 74.1 61.2 Lymph % (Auto) 16.3 L 23.9 L [place] % (Auto) 6.9 9.1 Eos % (Auto) 2.1 4.9 H Baso % (Auto) 0.6 0.9 Neut # (Auto) 6000 3500 Lymph # (Auto) 1300 1400 [place] # (Auto) 600 500 Eos # (Auto) 200 300 Baso # (Auto) 0 0 PT 13.6 H INR 1.2 APTT 30 Sodium 128 L 133 L Potassium 3.0 L 3.8 Chloride 91 L 100 Carbon Dioxide 27 28 BUN 15 13 Creatinine 0.75 0.68 Estimated GFR > 60 > 60 BUN/Creatinine Ratio 20.0 19.1 Glucose 104 94 Hemoglobin A1c 5.3 Calcium 10.4 H 9.3 Magnesium 1.8 2.0 Total Bilirubin 0.3 0.3 AST 44 H 34 ALT 47 H 37 H Alkaline Phosphatase 82 66 Total Creatine Kinase 38 Troponin I < 0.012 0.023 Total Protein 7.6 6.3 Albumin 4.6 3.8 Globulin 3.0 2.5 Albumin/Globulin Ratio 1.5 1.5 Triglycerides 132 Cholesterol 144 LDL Cholesterol, Calc 78 HDL Cholesterol 40 Lipase 269 TSH 1.33 [facility] Medical History Right ankle swelling Scoliosis Low back pain associated with a spinal disorder other than radiculopathy or spinal stenosis Adenomatous colon polyp Surgical History Status post delivery History of tonsillectomy Family History Grandmother Stroke Mother Age: 88 Heart disease Grandfather Stroke Grandmother Heart disease Social History household members: spouse Smoking Status: Never smoker alcohol intake: never Discharge Plan Discharge Plan Patient Disposition: Home Provider Discharge Comment: I believe your symptoms were due to low sodium, from recently starting a diuretic blood pressure medication called chlorthalidone. I've switched to a different blood pressure med which doesn't affect sodium. Your MRI brain was normal, so no stroke. Discharge orders & Medications Prescriptions: New losartan 25 mg Tablet 25 mg PO DAILY Qty: 30 0RF Continued omega 2-xoc-ura-fish oil [Fish Oil] 1,000 MG capsule 1 cap PO DAILY Qty: 0 naproxen sodium [Aleve] 220 mg capsule 220 mg PO BID PRN (Reason: Pain (Scale Score 1-3)) Hold Instructions: Home Medication placed on hold at Doctor's office celecoxib [Celebrex] 200 mg capsule 200 mg PO DAILY Qty: 30 2RF Patient Comments: PRN for back pain Rx Instructions: PRN for back pain Discontinued chlorthalidone 25 mg tablet 25 mg PO DAILY Follow up/Referrals: Todd Callahan DO [Primary Care Provider] - 2 Weeks Visit Report/Discharge Packet Stand Alone Forms: Patient Portal/API, Stroke Signs & Symptoms Discharge Data Primary Care Provider: Todd Callahan Attending Provider: Sahil De Los Santos Admit Date/Time: 09/25/23 16:58 Quality VTE Deep Vein Thrombosis/Pulmonary Embolism Present on Admission: No
[2023-09-26 09:53] VITALS: BP 151/60; PULSE 66
[2023-09-26] MEDS: LOSARTAN 25 MG TABLET PO (09:53)
--- NOTE | 2023-09-26 11:26 | CM.DANOTE ---
Initial DCP Assessment Note Pt is a 78 yo female, resident of [place], presents with change in mentation concerning for TIA vs CVA, admitted for stroke w/u- all imaging Neg for stroke, patient discharging home today. PCP: Todd Callahan Payer: [facility] Reviewed chart, pt discussed in multidisciplinary rounds this morning. DC order from Dr De Los Santos has already been initiated this morning. Patient eager to return home, spouse to transport home. Patient independent in all aspects. No barriers identified at this time to patient's safe discharge home w/family to assist; close outpatient f/u recommended. COLEMAN Walker Discharge Planning/Care Management CM Discharge Assessment Start: 09/26/23 11:24 Freq: Status: Active Protocol: Document 09/26/23 11:24 PHONG (Rec: 09/26/23 11:26 PHONG [id number]) Discharge Planning Assessment Assigned [place] COLEMAN Evangelista DPOA/Assigned Designee Name Blair Vega, spouse Contact Information [phone] Advance Directives? Yes Advance Directives on File No History Provided By Patient,Medical Record Prior Living Arrangements House Household Members spouse Type of transporation used prior to Drives own vehicle admit Independent with ADL's Yes Is patient alert and oriented? Yes Barriers to Discharge No Comment Home w/spouse Discharge Plan Home Transportation Arrangement Family Referrals Initiated None needed
== END 2023-09-26 11:41 | disposition home or self-care (01) ==
LOC: ED 16:00 → AC 16:58
PROVIDERS: Admitting Provider Student in an Organized Health Care Education/Training Program; Emergency Provider Emergency Medicine; Family Provider Internal Medicine; PCP Family Medicine; Referring Provider Emergency Medicine; Visit Provider Student in an Organized Health Care Education/Training Program
DX: R07.9 Chest pain, unspecified (principal); R41.0 Disorientation, unspecified; R29.700 NIHSS score 0; I16.0 Hypertensive urgency; E87.1 Hypo-osmolality and hyponatremia; E87.6 Hypokalemia; M54.50 Low back pain, unspecified
CPT/HCPCS: 36415; 70450; 70496; 70498; 70551; 71045; 80053; 80061; 81003; 82550; 83036; 83690; 83735; 84443; 84484; 85025; 85610; 85730; 93005; 96361; 96374; 99285; G0378; J1650; J3475

== ENCOUNTER 2024-09-30 13:52 | Emergency (ER) | payer MEDICARE, OTHER, SELFPAY ==
[2023-09-25 20:38] VITALS: BMI 24.0
[2024-09-30] VITALS (29 sets, daily range): BP systolic 118–228; BP diastolic 55–102; PULSE 60–68; RESP 11–32; TEMP 36.2; O2SAT 96–100; BMI 24.0
--- NOTE | 2024-09-30 14:03 | DI.RAD.S_ITS ---
PROCEDURE: XR CHEST 1V INDICATIONS: chest pain TECHNIQUE: One view of the chest was acquired. COMPARISON: [facility], CR, XR CHEST 1V, 09/25/2023, 15:17. FINDINGS: Surgical changes and devices: None. Lungs and pleura: Lungs are clear. No pleural effusions or pneumothorax. Stable calcified granulomas. Mediastinum: Mediastinal contours appear normal. Heart size is normal. Bones and chest wall: No suspicious bony lesions. Overlying soft tissues appear unremarkable. IMPRESSION: No acute cardiopulmonary abnormality is seen. Approved by: Lb Quiñonez M.D. on 09/30/2024 at 15:32
--- NOTE | 2024-09-30 14:21 | EKG_ITS ---
[place] [id number] [address] [place] [id number] Test Date: 2024-09-30 Pat Name: Dominga Vega Department: [facility] Room: Gender: Female [employer] Cook: JACQUELINE : 1945 Requested By: Order Number: [id number] Reading MD: Evan Koch MD Measurements Intervals [place] Rate: 66 P: 59 KS: 224 QRS: -18 QRSD: 130 T: 14 QT: 436 QTc: 457 Interpretive Statements Sinus rhythm with 1st degree AV block Right bundle branch block NO SIGNIFICANT CHANGE FROM PRIOR TRACING Electronically Signed On 09-30-2024 15:14:09 PST by Evan Koch MD
[2024-09-30 15:12] LABS: Prothrombin Time 11.8 SECONDS (9.4-12.5)
[2024-09-30 15:14] LABS: Add Manual Diff / Slide Review NO; Basophils Absolute Auto 100 /uL (0-100); Basophils Percent Auto 0.9 % (0-2); Eosinophils Absolute Auto 100 /uL (0-450); Eosinophils Percent Auto 0.9 % (2-4); Hematocrit 41.3 % (36-46); Hemoglobin 14.1 g/dL (12.0-16.0); Lymphocytes Absolute Auto 1800 /uL (1100-4500); Lymphocytes Percent Auto 30.9 % (25-40); Mean Corpuscular HGB Conc 34.2 % (30-36); Mean Corpuscular Volume 93.4 fL (80-100); Monocytes Absolute Auto 500 /uL (0-900); Monocytes Percent Auto 9.3 % (3-14); Neutrophils Absolute Auto 3300 /uL (1500-7000); Platelet Count 195 X10^3/uL (150-400); Red Blood Cell Count 4.42 X10^6/uL (4.0-5.2); Red Cell Distribution Width 12.7 % (11.6-14.8); White Blood Cell Count 5.8 X10^3/uL (4.5-11.0)
[2024-09-30 15:15] LABS: PTT Partial Thromboplastin Tim 36 SECONDS (25.1-36.5)
[2024-09-30 15:16] LABS: Alanine Aminotransferase 32 IU/L (<35); Albumin 4.5 g/dL (3.5-5.0); Albumin Globulin Ratio 1.7 (1.0-2.8); Alkaline Phosphatase 79 U/L (38-126); Aspartate Aminotransferase 39 IU/L (14-36); BUN Creatinine Ratio 19.1 (6-22); Bilirubin Total 0.4 mg/dL (0.2-1.3); Blood Urea Nitrogen 13 mg/dL (7-17); Calcium 9.8 mg/dL (8.4-10.2); Carbon Dioxide 25 mmol/L (22-32); Chloride 101 mmol/L (98-107); Creatine Kinase 46 U/L (30-135); Estimated Glomerular Filt Rate > 60 mL/min (>60); Globulin 2.7 g/dL (1.7-4.1); Glucose 80 mg/dL (80-110); HEMOLYSIS 16 (0-50); Lipase 218 U/L (23-300); Magnesium 1.9 mg/dL (1.6-2.3); Potassium 3.9 mmol/L (3.4-5.1); Sodium 133 mmol/L (137-145); Total Protein 7.2 g/dL (6.3-8.2)
[2024-09-30 15:28] LABS: NT-proBNP (BNP-Adult 18+) 136 pg/mL (<450); Troponin I < 0.012 ng/mL (0.01-0.034)
[2024-09-30] MEDS: ASPIRIN 81 MG CHEW TAB 324 MG PO (16:13)
--- NOTE | 2024-09-30 18:06 | DI.CT.S_ITS ---
PROCEDURE: CT HEAD/BRAIN WO CON INDICATIONS: HTN and headache TECHNIQUE: Noncontrast 4.5 mm thick angled axial sections acquired from the foramen magnum to the vertex, with coronal and sagittal reformats. For radiation dose reduction, the following was used: automated exposure control, adjustment of mA and/or kV according to patient size. COMPARISON: None. FINDINGS: Image quality: Diagnostic. CSF spaces: Basal cisterns are patent. No extra-axial fluid collections. The ventricles are symmetric in size and shape. Brain: No intracranial bleeds or masses. There is cerebral volume loss for age, with resultant ventricular and sulcal prominence. There are periventricular and deep white matter chronic small vessel ischemic changes. There is intracranial internal carotid artery atherosclerosis. Skull and face: Calvarium and visualized facial bones appear intact, without suspicious lesions. Sinuses: Visualized sinuses and mastoids are clear. IMPRESSION: No CT evidence of acute intracranial process. Age-appropriate cerebral cortical volume loss and chronic microvascular ischemic changes. Dictated by: Nidia Johnson M.D. on 09/30/2024 at 19:12 Approved by: Nidia Johnson M.D. on 09/30/2024 at 19:13
--- NOTE | 2024-09-30 19:35 | ED.GENADULT ---
HPI - General Adult General Chief complaint: Hypertension Stated complaint: High BP 200/126 Time Seen by Provider: 09/30/24 16:49 Source: patient Mode of arrival: Family Vehicle History of Present Illness HPI narrative: Patient is a 79-year-old female. Has a history hypertension. Is on blood pressure medications. States she does not check her blood pressure often at home. A couple weeks ago she checked her blood pressure was elevated. She talked with the primary doctor. They made some changes to her blood pressure medicines. She did not check her blood pressure regularly after that. She got a call from her family members today who asked what her blood pressure was. She took her blood pressure was elevated with a systolic above 200 and a diastolic above 100. She denies chest pain or shortness of breath. She stated that she has had an occasional throbbing headache over the past couple weeks but no symptoms now. No lower extremity swelling. She has been taking all of her medications as directed. Related Data Home Medications Medication Instructions Recorded Confirmed omega 7-qio-kvh-fish oil 1,000 mg 1 cap PO DAILY ##0 12/01/17 09/25/23 (120 mg-180 mg) capsule (Fish Oil) naproxen sodium 220 mg capsule 220 mg PO BID PRN Pain (Scale 06/13/22 09/25/23 (Aleve) Score 1-3) Previous Rx's Medication Instructions Recorded celecoxib 200 mg capsule (Celebrex) 200 mg PO DAILY #30 caps 06/13/22 losartan 25 mg tablet 25 mg PO DAILY #30 tabs 09/26/23 Allergies Allergy/AdvReac Type Severity Reaction Status Date / Time No Known Drug Allergies Allergy Verified 09/25/23 17:46 Review of Systems Review of Systems ROS Unobtainable: All systems reviewed & are unremarkable except as noted in HPI and below Patient History Medical History Right ankle swelling Scoliosis Low back pain associated with a spinal disorder other than radiculopathy or spinal stenosis Adenomatous colon polyp Surgical History Status post delivery History of tonsillectomy Family History Grandmother Stroke Mother Age: 88 Heart disease Grandfather Stroke Grandmother Heart disease Social History household members: spouse Smoking Status: Never smoker alcohol intake: never Smoking Status: Never smoker alcohol intake frequency: 0-2 drinks per day Substance Use Type: does not use Exam Initial Vital Signs Initial Vital Signs: Vital Signs Temperature 97.2 F L 09/30/24 13:58 Pulse Rate 68 09/30/24 13:58 Respiratory Rate 19 09/30/24 13:58 Blood Pressure 226/93 H 09/30/24 13:58 Pulse Oximetry 100 09/30/24 13:58 Oxygen Delivery Method Room Air 09/30/24 13:58 Const General: cooperative, comfortable and No ill appearing HENMT Head: normal to inspection and normocephalic Resp Effort & Inspection: normal respiratory effort and able to speak in complete sentences Auscultation: clear to auscultation bilaterally Cardio Rate: regular rate Rhythm: regular rhythm GI Inspection: normal to inspection Skin General: no rashes or lesions noted Extrem General: No edema Course Orders Ordered: ED Orders 09/30/24 18:06 CT head/brain wo con Stat Discontinued Medications Aspirin (Aspirin 81 Mg Chew Tab) 324 mg PO NOW ONE Stop: 09/30/24 14:04 Last Admin: 09/30/24 16:13 Dose: 324 mg Documented By: SPF Vital Signs Vital signs: Vital Signs - 8 hr 09/30/24 17:10 09/30/24 17:10 09/30/24 17:21 Pulse Rate 62 Respiratory Rate 21 Blood Pressure 192/93 H 176/85 H Pulse Oximetry 99 Oxygen Delivery Method 09/30/24 17:21 09/30/24 17:30 09/30/24 17:30 Pulse Rate 62 63 Respiratory Rate 19 19 Blood Pressure 175/84 H Pulse Oximetry 97 96 Oxygen Delivery Method 09/30/24 17:40 09/30/24 17:40 09/30/24 17:50 Pulse Rate 62 62 Respiratory Rate Blood Pressure 176/81 H Pulse Oximetry 96 96 Oxygen Delivery Method 09/30/24 17:50 09/30/24 18:00 09/30/24 18:00 Pulse Rate 61 Respiratory Rate 21 Blood Pressure 179/80 H 179/84 H Pulse Oximetry 96 Oxygen Delivery Method Room Air 09/30/24 18:10 09/30/24 18:10 09/30/24 18:20 Pulse Rate 62 Respiratory Rate 25 H Blood Pressure 182/82 H 175/90 H Pulse Oximetry 96 Oxygen Delivery Method 09/30/24 18:20 09/30/24 18:33 09/30/24 19:00 Pulse Rate 66 64 61 Respiratory Rate 32 H Blood Pressure Pulse Oximetry 96 100 99 Oxygen Delivery Method Room Air 09/30/24 19:07 09/30/24 19:07 09/30/24 19:10 Pulse Rate 62 61 Respiratory Rate 17 15 Blood Pressure 187/85 H Pulse Oximetry 99 100 Oxygen Delivery Method Room Air 09/30/24 19:10 09/30/24 19:20 09/30/24 19:20 Pulse Rate 61 Respiratory Rate 11 L Blood Pressure 191/84 H 179/82 H Pulse Oximetry 98 Oxygen Delivery Method Room Air Medical Decision Making Lab Data Lab results reviewed: Yes I reviewed the patient's lab results. 09/30/24 14:52 09/30/24 14:52 Labs: Lab Results 09/30/24 Range/Units 14:52 WBC 5.8 (4.5-11.0) X10^3/uL RBC 4.42 (4.0-5.2) X10^6/uL Hgb 14.1 (12.0-16.0) g/dL Hct 41.3 (36-46) % MCV 93.4 (80-100) fL MCH 32.0 (26-34) PG MCHC 34.2 (30-36) % RDW 12.7 (11.6-14.8) % Plt Count 195 (150-400) X10^3/uL Neut % (Auto) 58.0 (50-75) % Lymph % (Auto) 30.9 (25-40) % [place] % (Auto) 9.3 (3-14) % Eos % (Auto) 0.9 L (2-4) % Baso % (Auto) 0.9 (0-2) % Neut # (Auto) 3300 (4080-5629) /uL Lymph # (Auto) 1800 (4068-8868) /uL [place] # (Auto) 500 (0-900) /uL Eos # (Auto) 100 (0-450) /uL Baso # (Auto) 100 (0-100) /uL PT 11.8 (9.4-12.5) SECONDS INR 1.0 (0.9-1.3) APTT 36 (25.1-36.5) SECONDS Sodium 133 L (137-145) mmol/L Potassium 3.9 (3.4-5.1) mmol/L Chloride 101 (98-107) mmol/L Carbon Dioxide 25 (22-32) mmol/L BUN 13 (7-17) mg/dL Creatinine 0.68 (0.52-1.04) mg/dL Estimated GFR > 60 (>60) mL/min BUN/Creatinine Ratio 19.1 (6-22) Glucose 80 (80-110) mg/dL Calcium 9.8 (8.4-10.2) mg/dL Magnesium 1.9 (1.6-2.3) mg/dL Total Bilirubin 0.4 (0.2-1.3) mg/dL AST 39 H (14-36) IU/L ALT 32 (<35) IU/L Alkaline Phosphatase 79 (38-126) U/L Total Creatine Kinase 46 (30-135) U/L Troponin I < 0.012 (0.01-0.034) ng/mL NT-Pro-B Natriuret Pep 136 (<450) pg/mL Total Protein 7.2 (6.3-8.2) g/dL Albumin 4.5 (3.5-5.0) g/dL Globulin 2.7 (1.7-4.1) g/dL Albumin/Globulin Ratio 1.7 (1.0-2.8) Lipase 218 (23-300) U/L Imaging Data Chest x-ray: Radiologist's Impression: PROCEDURE: XR CHEST 1V INDICATIONS: chest pain TECHNIQUE: One view of the chest was acquired. COMPARISON: [facility], , XR CHEST 1V, 09/25/2023, 15:17. FINDINGS: Surgical changes and devices: None. Lungs and pleura: Lungs are clear. No pleural effusions or pneumothorax. Stable calcified granulomas. Mediastinum: Mediastinal contours appear normal. Heart size is normal. Bones and chest wall: No suspicious bony lesions. Overlying soft tissues appear unremarkable. IMPRESSION: No acute cardiopulmonary abnormality is seen. CT scan - head: Radiologist's Impression: PROCEDURE: CT HEAD/BRAIN WO CON INDICATIONS: HTN and headache TECHNIQUE: Noncontrast 4.5 mm thick angled axial sections acquired from the foramen magnum to the vertex, with coronal and sagittal reformats. For radiation dose reduction, the following was used: automated exposure control, adjustment of mA and/or kV according to patient size. COMPARISON: None. FINDINGS: Image quality: Diagnostic. CSF spaces: Basal cisterns are patent. No extra-axial fluid collections. The ventricles are symmetric in size and shape. Brain: No intracranial bleeds or masses. There is cerebral volume loss for age, with resultant ventricular and sulcal prominence. There are periventricular and deep white matter chronic small vessel ischemic changes. There is intracranial internal carotid artery atherosclerosis. Skull and face: Calvarium and visualized facial bones appear intact, without suspicious lesions. Sinuses: Visualized sinuses and mastoids are clear. IMPRESSION: No CT evidence of acute intracranial process. Age-appropriate cerebral cortical volume loss and chronic microvascular ischemic changes. ECG Data Attestation: I personally reviewed and interpreted this ECG as follows: Interpretation: Sinus rhythm Ventricular rate 66 First-degree AV block MA interval of 2-4 milliseconds Normal QRS Normal QTC No ST T wave changes MDM Narrative Medical decision making narrative: Blood pressure improved without specific intervention here in the emergency department. She was no indication today that she was having an acute IA, ACS, CVA, renal failure, CHF. We did discuss elevations in blood pressure. We discussed how she should be taking her blood pressure at home on a regular basis and talking with her primary doctor about these values as she may need further changes in her medicines. We discussed specific return precautions and follow-up instructions. She expressed understanding and agreement plan. Discharge Plan Departure Patient Disposition: Home Clinical Impression: Hypertension Instructions: DI for High Blood Pressure Activity Restrictions/Additional Instructions: Continue to take all of your medications as directed. Take your blood pressure at home like we discussed. Keep your scheduled follow-up appointment with your primary doctor. Return to the emergency department for new or worsening symptoms. Prescriptions: No Action omega 9-[id number]-nbm-fish oil [Fish Oil] 1,000 MG capsule 1 cap PO DAILY Qty: 0 losartan 25 mg Tablet 25 mg PO DAILY Qty: 30 0RF naproxen sodium [Aleve] 220 mg capsule 220 mg PO BID PRN (Reason: Pain (Scale Score 1-3)) Hold Instructions: Home Medication placed on hold at Doctor's office celecoxib [Celebrex] 200 mg capsule 200 mg PO DAILY Qty: 30 2RF Patient Comments: PRN for back pain Rx Instructions: PRN for back pain Referrals: Todd Callahan DO [Primary Care Provider] - Stand Alone Forms: Patient Portal/API/Survey
== END 2024-09-30 19:45 | disposition home or self-care (01) ==
PROVIDERS: Emergency Medicine; Emergency Provider Emergency Medicine; Family Provider Internal Medicine; PCP Family Medicine
DX: I10 Essential (primary) hypertension (principal); R07.9 Chest pain, unspecified; I44.0 Atrioventricular block, first degree; R51.9 Headache, unspecified
CPT/HCPCS: 36415; 70450; 71045; 80053; 82550; 83690; 83735; 83880; 84484; 85025; 85610; 85730; 93005; 93010; 99284

== ENCOUNTER → 2025-10-19 14:06 | Outpatient (CLI) | payer MEDICARE, OTHER, SELFPAY ==
[2023-09-25 20:38] VITALS: BMI 24.0
== END ==
LOC: NUCM 14:11
PROVIDERS: Family Provider Internal Medicine; PCP Physician Assistant; Referring Provider Internal Medicine Cardiovascular Disease; Visit Provider Internal Medicine Cardiovascular Disease
DX: I1A.0 Resistant hypertension (principal); R07.89 Other chest pain; I10 Essential (primary) hypertension; R94.31 Abnormal electrocardiogram [ECG] [EKG]; I45.10 Unspecified right bundle-branch block
CPT/HCPCS: 78452; 93017; A9502